=== PATIENT | female | born 1980 | race Caucasian/White ===

== ENCOUNTER 2018-06-05 10:20 | Emergency (ER) | payer OTHER ==
[2018-06-05 10:32] VITALS: BMI 29.8
[2018-06-05 10:35] VITALS: TEMP 98.8
[2018-06-05] MEDS ORDERED: Sodium Chloride 0.9% 1,000 ML IV ONE (11:13)
--- NOTE | 2018-06-05 11:23 | C.PDOC ---
History Of Present Illness 38 y/o female with no PMHx presents to the ED complaining of dizziness, onset 5 days ago. She describes the dizziness as room spinning, and states it worsens when changing position (from lying to sit, and sit to stand). Patient went to an urgent care 3 days ago, was given Flexeril for a neck spasm, and was instructed to go to the ED if dizziness persisted. Of note patient has also had URI symptoms since 5 days ago, which have now improved. Patient admits she drinks limited water throughout the day. She also admits to high amount of screen time with her job. Otherwise she denies any visual changes, weakness, numbness, paresthesias, fever, chills, chest pain, SOB, back pain, headache, abdominal pain, neck stiffness, vaginal bleeding, nausea, vomiting, diarrhea, or urinary complaints. Time Seen by Provider: 06/05/18 10:44 Chief Complaint (Nursing): Dizziness/Lightheaded History Per: Patient History/Exam Limitations: no limitations Onset/Duration Of Symptoms: Days (6) Current Symptoms Are (Timing): Still Present Seizure Or Post-ictal Symptoms: None Possible Causative Factor(s): Vertigo Fall Associated With With Symptoms: No Past Medical History Reviewed: Historical Data, Nursing Documentation, Vital Signs Vital Signs: Last Vital Signs Temp 98.8 F 06/05/18 10:32 Pulse 100 H 06/05/18 10:32 Resp 20 06/05/18 10:32 BP 145/87 06/05/18 10:32 Pulse Ox 99 06/05/18 10:32 - Medical History PMH: No Chronic Diseases Surgical History: Family History: States: No Known Family Hx - Social History Hx Alcohol Use: No Hx Substance Use: No - Immunization History Hx Tetanus Toxoid Vaccination: No Hx Influenza Vaccination: No Hx Pneumococcal Vaccination: No Review Of Systems Except As Marked, All Systems Reviewed And Found Negative. Constitutional: Negative for: Fever, Chills Eyes: Negative for: Vision Change Cardiovascular: Negative for: Chest Pain, Palpitations Respiratory: Positive for: Cough (now improved). Negative for: Shortness of Breath Gastrointestinal: Negative for: Nausea, Vomiting, Abdominal Pain, Diarrhea, Melena, Hematochezia, Hematemesis Genitourinary: Negative for: Dysuria, Frequency, Vaginal Discharge, Vaginal Bleeding Musculoskeletal: Negative for: Neck Pain, Back Pain Skin: Negative for: Rash Neurological: Positive for: Dizziness. Negative for: Weakness, Numbness, Change in Speech, Other (syncope) Physical Exam - Physical Exam Appears: Well, Non-toxic, No Acute Distress Skin: Normal Color, Warm, No Rash Head: Atraumatic, Normacephalic Eye(s): bilateral: Normal Inspection (no nystagmus), PERRL, EOMI Ear(s): Bilateral: Normal Nose: Normal Oral Mucosa: Moist Throat: Normal, No Erythema, No Exudate, No Drooling Neck: Normal ROM, Supple, Other (No rigidity) Chest: Symmetrical Cardiovascular: Rhythm Regular, No Murmur Respiratory: Normal Breath Sounds, No Accessory Muscle Use, Other (No respiratory distress) Gastrointestinal/Abdominal: Bowel Sounds (normoactive), Soft, No Tenderness, No Distention Back: Normal Inspection, No CVA Tenderness, No Muscle Spasm Extremity: Normal ROM, Capillary Refill (<2s) Extremity: Bilateral: Atraumatic, Normal Color And Temperature, Normal ROM Pulses: Left Radial: Normal, Right Radial: Normal Neurological/Psych: Oriented x3, Normal Speech, Normal Cognition, Normal Cranial Nerves, No Cerebellar Signs, Normal Motor, Normal Sensation Gait: Steady (without ataxia) ED Course And Treatment - Laboratory Results Result Diagrams: 06/05/18 11:41 06/05/18 11:41 ECG: Interpreted By Me, Viewed By Me ECG Rhythm: Sinus Rhythm ECG Interpretation: Normal Interpretation Of ECG: Rate 88; NSR; Normal Intervals; No STEMI or other signs of acute ischemia Rate From EC (bpm) O2 Sat by Pulse Oximetry: 99 (RA) Pulse Ox Interpretation: Normal - Other Rad CXR X-Ray: Read By Radiologist Interpretation: Accession No. : [id number]. Patient Name / ID : BAKARI GONZALESHA / [id number]. Exam Date : 06/05/2018 12:43:15 ( Approved ). Study Comment : Sex / Age : F / 38Y. Creator : mercedes andersen. Dictator : Tammy Schultz MD. Billet Sawyer : Engineering Inspection Assistant : Tammy Schultz MD. Approver2 : Report Date : 06/05/2018 12:48:56. My Comment : . Date of service: 06/05/2018. HISTORY: dizziness. COMPARISON: No prior. FINDINGS: LUNGS: The lungs are well inflated and clear. PLEURA: No pleural effusions or pneumothorax. CARDIOVASCULAR: The heart is normal in size. No aortic atherosclerotic calcifications present. OSSEOUS STRUCTURES: Within normal limits for the patient's age. VISUALIZED UPPER ABDOMEN: Normal. OTHER FINDINGS: None. IMPRESSION: No active pulmonary disease. - CT Scan/US Head CT Other Rad Studies (CT/US): Read By Radiologist, Radiology Report Reviewed CT/US Interpretation: Accession No. : [id number]. Patient Name / ID : BAKARI GONZALESHA / [id number]. Exam Date : 06/05/2018 11:33:52 ( Approved ). Study Comment : Sex / Age : F / 38Y. Creator : Kenia Mandel. Dictator : Octavia Mccullough MD. Billet Sawyer : Engineering Inspection Assistant : Octavia Mccullough MD. Ap prover2 : Report Date : 06/05/2018 11:54:57. My Comment : . Date of service: 06/05/2018. PROCEDURE: CT HEAD WITHOUT CONTRAST. HISTORY: headache, dizziness. COMPARISON: None available. TECHNIQUE: Axial computed tomography images were obtained through the head/brain without intravenous contrast. Radiation dose: Total exam DLP = 1077.56 mGy-cm. This CT exam was performed using one or more of the following dose reduction techniques: Automated exposure control, adjustment of the mA and/or kV according to patient size, and/or use of iterative reconstruction technique. FINDINGS: HEMORRHAGE: No intracranial hemorrhage. BRAIN: No mass effect or edema. No atrophy or chronic microvascular ischemic changes. VENTRICLES: No hydrocephalus. CALVARIUM: Unremarkable. PARANASAL SINUSES: Mild mucosal thickening of the ethmoid air cells. MASTOID AIR CELLS: Unremarkable as visualized. No inflammatory changes. OTHER FINDINGS: None. IMPRESSION: No acute intracranial pathology identified. Mild mucosal thickening of the ethmoid air cells; correlate clinically for sinusitis. Medical Decision Making Medical Decision Making: Impression: Dizziness, Headache Initial Plan: - Blood work w/ cardiac enzymes and coags - Urinalysis - Urine culture - Flu swab - EKG - Chest x-ray - CT Head - IV fluids x 1 bolus - 25 mg PO Meclizine EKG is normal. CXR shows no active disease Labs reviewed, unremarkable. All results discussed with patient. CT is indicative of sinusitis but otherwise negative for intracranial pathology. With history of recent URI, patient given PO Augmentin. 12:30 On reassessment patient reports resolution of symptoms, and feels comfortable going home. Advised followup with neurology, ENT, and PMD. Patient remains AAOx3, with clear speech and steady gait. Stable for discharge home. Diagnostic testing results and plan of care discussed with patient. Strict instructions given regarding prescription use, importance of followup, and signs/symptoms to return to ER including persistent dizziness, syncope, fever, chills, vision changes, headache, or any other new/worsening symptoms. Pt verbalized understanding of discussion. Patient is A&Ox3, ambulating with steady gait, with vital signs stable for discharge. Disposition Counseled Patient/Family Regarding: Studies Performed, Diagnosis, Rx Given - Disposition Referrals: [facility] [Outside] Jaquan Flores MD [Staff Provider] - Camryn Torres MD [Staff Provider] - Disposition: HOME/ ROUTINE Disposition Time: 12:55 Condition: GOOD Additional Instructions: Augmentin every 12 hours for 10 days Meclizine daily as needed for dizziness Increase fluids Followup with neurology within 2 days Followup with ENT within 2 days Followup with primary within 2 days Return to ER with any new/worsening symptoms Prescriptions: Amoxicillin/Clavulanate [Augmentin 875 MG-125 MG] 1 tab PO Q12 #20 tab Meclizine [Meclizine*] 25 mg PO DAILY #5 tab Instructions: Vertigo (a Type of Dizziness), Sinusitis, Adult (DC) Forms: General Discharge Instructions, [facility] ([place]), Work Excuse - POA Present On Arrival: None - Clinical Impression Clinical Impression: Dizziness, Sinusitis - PA / ART APPRAISER / Resident Statement MD/DO has reviewed & agrees with the documentation as recorded. - Scribe Statement The provider has reviewed the documentation as recorded by the Scribe Petra Bonilla All medical record entries made by the Scribe were at my direction and personally dictated by me. I have reviewed the chart and agree that the record accurately reflects my personal performance of the history, physical exam, medical decision making, and the department course for this patient. I have also personally directed, reviewed, and agree with the discharge instructions and disposition.
[2018-06-05 11:48] LABS: BASO # 0.1 K/uL (0.0-0.2); EOS # 0.4 K/uL (0.0-0.7); EOS % 4.8 % (0.0-4.0); HEMOGLOBIN 13.4 g/dL (11.0-16.0); LYMPH # 2.2 K/uL (1.0-4.3); LYMPH % 28.8 % (20.0-40.0); MEAN CELL VOLUME 78.7 fL (81.0-99.0); MEAN CORPUSCULAR HEMOGLOBIN 26.3 pg (27.0-31.0); MEAN CORPUSCULAR HGB CONC 33.4 g/dL (33.0-37.0); MEAN PLATELET VOLUME 9.3 fL (7.2-11.7); MONO # 0.6 K/uL (0.0-0.8); MONO % 7.7 % (0.0-10.0); NEUT # 4.4 K/uL (1.8-7.0); NEUT % 57.7 % (50.0-75.0); NRBC % 0.1 % (0.0-2.0); RBC 5.09 Mil/uL (3.80-5.20); RED CELL DISTRIBUTION WIDTH 14.9 % (11.5-14.5); WHITE BLOOD COUNT 7.6 K/uL (4.8-10.8)
[2018-06-05 11:55] LABS: SQUAMOUS EPITHIAL 6 /hpf (0-5); URINE BACTERIA RARE (<OCC); URINE BILIRUBIN NEGATIVE (NEGATIVE); URINE BLOOD NEGATIVE (NEGATIVE); URINE CLARITY Hazy (Clear); URINE COLOR Yellow (YELLOW); URINE GLUCOSE (UA) NORMAL (Normal); URINE LEUKOCYTE ESTERASE NEG Leu/uL (Negative); URINE PROTEIN NEGATIVE (NEGATIVE); URINE UROBILINOGEN NORMAL mg/dL (0.2-1.0)
[2018-06-05] MEDS ORDERED: Sodium Chloride 0.9% 1,000 ML ONE (12:00)
[2018-06-05 12:02] LABS: INR 1.1; PROTHROMBIN TIME 11.5 SECONDS (9.7-12.2)
[2018-06-05 12:06] LABS: ALB/GLOB RATIO 1.5 (1.0-2.1); ALBUMIN 4.5 g/dL (3.5-5.0); ALT/SGPT 7 U/L (9-52); AST/SGOT 22 U/L (14-36); BLOOD UREA NITROGEN 6 mg/dL (7-17); CALCIUM 9.6 mg/dl (8.6-10.4); GFR NON-AFRICAN AMERICAN > 60
[2018-06-05 12:12] LABS: BARBITURATES, UR NEGATIVE (NEGATIVE); BENZODIAZEPINES, UR NEGATIVE (NEGATIVE); OPIATES, UR NEGATIVE (NEGATIVE); PHENCYCLIDINE, UR NEGATIVE (NEGATIVE)
--- NOTE | 2018-06-05 12:12 | CT ---
Date of service: 06/05/2018 PROCEDURE: CT HEAD WITHOUT CONTRAST. HISTORY: headache, dizziness COMPARISON: None available. TECHNIQUE: Axial computed tomography images were obtained through the head/brain without intravenous contrast. Radiation dose: Total exam DLP = 1077.56 mGy-cm. This CT exam was performed using one or more of the following dose reduction techniques: Automated exposure control, adjustment of the mA and/or kV according to patient size, and/or use of iterative reconstruction technique. FINDINGS: HEMORRHAGE: No intracranial hemorrhage. BRAIN: No mass effect or edema. No atrophy or chronic microvascular ischemic changes. VENTRICLES: No hydrocephalus. CALVARIUM: Unremarkable. PARANASAL SINUSES: Mild mucosal thickening of the ethmoid air cells. MASTOID AIR CELLS: Unremarkable as visualized. No inflammatory changes. OTHER FINDINGS: None. IMPRESSION: No acute intracranial pathology identified. Mild mucosal thickening of the ethmoid air cells; correlate clinically for sinusitis.
[2018-06-05 12:28] VITALS: BP 132/84; PULSE 88; RESP 18
[2018-06-05 12:34] VITALS: O2SAT 99
[2018-06-05] MEDS ORDERED: Amoxicillin-Clav 875-125 mg Tab PO STA (12:36)
[2018-06-05] MEDS ORDERED: Amoxicillin-Clav 875-125 mg Tab PO ONE (12:49)
--- NOTE | 2018-06-05 13:29 | RAD ---
Date of service: 06/05/2018 HISTORY: dizziness COMPARISON: No prior. FINDINGS: LUNGS: The lungs are well inflated and clear. PLEURA: No pleural effusions or pneumothorax. CARDIOVASCULAR: The heart is normal in size. No aortic atherosclerotic calcifications present. OSSEOUS STRUCTURES: Within normal limits for the patient's age. VISUALIZED UPPER ABDOMEN: Normal. OTHER FINDINGS: None. IMPRESSION: No active pulmonary disease.
--- NOTE | 2018-06-06 18:26 | CARD ---
APPROVED REPORT Date of service: 06/05/2018 EKG Measurement Heart [id number] <Conclusion> Normal sinus rhythm Normal ECG
== END 2018-06-05 13:29 | disposition home or self-care (01) ==
LOC: C.ER 10:20
DX: R42 Dizziness and giddiness (principal); J32.9 Chronic sinusitis, unspecified
CPT/HCPCS: 70450; 71045; 80053; 80324; 80345; 80346; 80349; 80353; 80358; 80361; 81001; 82948; 83735; 83992; 84100; 84484; 85025; 85610; 85730; 87086; 87804; 93005; 96360; 99285; J7030